=== PATIENT | male | born 1970 | race Caucasian/White ===

== ENCOUNTER 2016-12-01 07:01 | Emergency (ER) | payer SELFPAY ==
[~2016-12-01] VITALS: Ht 185.4 cm; Wt 95.0 kg
[2016-12-01 07:27] VITALS: BP 132/79; PULSE 89; RESP 16; TEMP 98.1; O2SAT 98
[2016-12-01] MEDS ORDERED: BACT800T5 PO (07:37)
[2016-12-01] MEDS ORDERED: CEPH-460 PO (07:37)
--- NOTE | 2016-12-01 07:38 | PD ---
HPI Chief Complaint: Skin Problem Time Seen by Provider: 07:32 Travel History International Travel<30 days: No Contact w/Intl Traveler<30days: No Traveled to known affect area: No History of Present Illness HPI 46 year old male presents to the emergency department for evaluation of possible infection to his lower legs that started approximately to 3 days ago. He states that he noticed a small area of redness to the left lower extremity. He states that he crossed his legs when he started noticing some redness to the right anterior extremity. He denies any fevers. He reports no chronic medical problems and taking no prescribed medications. He denies any allergies to medications. Patient states his tetanus immunization has been within 5 years. He denies any other complaints at this time. [facility] Social History Alcohol Use: Yes Tobacco Use: Yes Substance Use: No Allergies-Medications (Allergen,Severity, Reaction): Coded Allergies: No Known Allergies (Unverified , 12/01/16) Review of Systems Except as stated in HPI: all other systems reviewed are Neg Physical Exam Narrative GENERAL: Well-developed well-nourished male patient, ambulatory. Afebrile. Vital signs stable. SKIN: Warm and dry. Patient has 2 cm x 3 cm area of erythema to the left posterior leg. He also has a 14 x 7 cm of mild erythema to the right anterior leg without lymphangiitis. No warmth. No drainage. No fluctuance or evidence of abscess formation. HEAD: Normocephalic. Atraumatic. EYES: No scleral icterus. No injection or drainage. NECK: Supple, trachea midline. No JVD or lymphadenopathy. CARDIOVASCULAR: Regular rate and rhythm without murmurs, gallops, or rubs. RESPIRATORY: Breath sounds equal bilaterally. No accessory muscle use. Lungs sounds are clear to auscultation. GASTROINTESTINAL: Abdomen soft, non-tender, nondistended. MUSCULOSKELETAL: No cyanosis, or edema. Data Data Last Documented VS Vital Signs Date Time Temp Pulse Resp B/P Pulse Ox O2 Delivery O2 Flow Rate FiO2 12/01/16 07:27 98.1 89 16 132/79 98 MDM Medical Decision Making Medical Screen Exam Complete: Yes Emergency Medical Condition: Yes Medical Record Reviewed: Yes Differential Diagnosis Cellulitis versus abscess versus abrasion Narrative Course 46-year-old male presents to the emergency department for possible infection to his bilateral lower legs. Physical exam reveals 2 x 3 cm erythema to the left posterior leg and 14 x 7 area of mild erythema to the right anterior leg without lymphangiitis. No evidence of abscess formation. Patient states his tetanus immunization is up-to-date. Patient will be started on Bactrim and Keflex is given his first dose in the emergency department. He is also given ibuprofen for pain. He is instructed on proper wound care. He is to follow up with his primary care physician. He is instructed on emergent conditions to immediately return to the emergency department for. He verbalizes agreement and understanding. Diagnosis Primary Impression: Cellulitis, leg Qualified Code: L03.119 - Cellulitis of lower extremity, unspecified laterality Referrals: Primary Care Physician call for appointment Patient Instructions: Cellulitis (ED), General Instructions Additional Instructions: Clean twice daily with soap and water and apply [id number] antibiotic ointment. Keep clean and dry. Take antibiotics as directed until gone. Bactrim is free at [facility]. Keflex is $4 at [facility]. Return to the emergency department for any acute worsening of symptoms. Med/Other Pt SpecificInfo: Prescription(s) given Scripts Cephalexin (Keflex)500 Mg Htp297 Mg PO Q6H 10 Days Ref 0 Prov:Teetee Vanegas 12/01/16 Sulfamethoxazole-Trimethoprim (Bactrim DS)800-160 Mg Tab1 Tab PO BID #20 TAB Ref 0 Prov:Teetee Vanegas 12/01/16 Disposition: 01 DISCHARGE HOME Condition: Stable Teetee Vanegas Dec 01, 2016 07:38
[2016-12-01] MEDS ORDERED: SULFAMETHOXAZOLE-TRIMETHOPRIM DS 800-160 MG TAB PO ONE (07:45)
[2016-12-01] MEDS ORDERED: IBUPROFEN 600 MG TAB PO ONE (07:45)
[2016-12-01] MEDS ORDERED: CEPHALEXIN MONOHYDRATE 500 MG CAP PO ONE (07:45)
== END 2016-12-01 07:56 | disposition home or self-care (01) ==
LOC: NEPB 07:01
DX: L03.116 Cellulitis of left lower limb (principal)
CPT/HCPCS: 99283